=== PATIENT | female | born 1950 | race Caucasian/White ===

== ENCOUNTER 2022-12-10 10:10 | Outpatient (CLI) | payer MEDICARE, OTHER | END 2022-12-10 10:11 | disposition home or self-care (01) | LOC: CSHMAMMO 10:10 | PROVIDERS: ATTEND Obstetrics & Gynecology | DX: Z12.31 Encounter for screening mammogram for malignant neoplasm of breast (principal); Z13.820 Encounter for screening for osteoporosis; M85.851 Other specified disorders of bone density and structure, right thigh; M85.852 Other specified disorders of bone density and structure, left thigh | CPT/HCPCS: 77063; 77067; 77080 ==

== ENCOUNTER 2023-01-29 14:05 | Outpatient (CLI) | payer MEDICARE, OTHER | END 2023-01-29 14:06 | disposition home or self-care (01) | LOC: CSHMRI 14:05 | PROVIDERS: ATTEND Psychiatry & Neurology Neurology | DX: D21.11 Benign neoplasm of connective and other soft tissue of right upper limb, including shoulder (principal) | CPT/HCPCS: 82565 ==